=== PATIENT | female | born 1960 | race Caucasian/White ===

== ENCOUNTER 2017-07-22 05:09 | Inpatient (IN) | payer OTHER ==
[~2017-07-22] VITALS: Ht 154.9 cm; Wt 70.3 kg
[~2017-07-22 05:09] MED LIST: FERROUS FUMARA324 MG PO; LISINOPRIL40 MG PO; NORVASC5 MG PO; VITAMIN B COMPL1 TAB PO; VITAMIN D35000 UNIT PO
== END 2017-07-27 13:30 | disposition home or self-care (01) | DRG 392 ==
LOC: ER 05:09 → SEC-K 19:18 → SURH 19:18
PROC: BW21Y0Z Computerized Tomography (CT Scan) of Abdomen and Pelvis using Other Contrast, Unenhanced and Enhanced (ICD-10-PCS; principal; 2017-07-22)
DX: K57.32 Diverticulitis of large intestine without perforation or abscess without bleeding (principal); I10 Essential (primary) hypertension; N92.0 Excessive and frequent menstruation with regular cycle

== ENCOUNTER 2017-07-29 01:19 | Emergency (ER) | payer OTHER ==
[~2017-07-29] VITALS: Ht 154.9 cm; Wt 70.3 kg
[2017-07-29] MEDS ORDERED: KETO10TA2 PO (08:04)
== END 2017-07-29 08:11 | disposition home or self-care (01) ==
LOC: ER 01:19
DX: R51 Headache (principal); I10 Essential (primary) hypertension

== ENCOUNTER 2018-03-03 02:37 | Inpatient (IN) | payer OTHER ==
[~2018-03-03] VITALS: Ht 154.9 cm; Wt 70.8 kg
[~2018-03-03 02:37] MED LIST changes: +KETO10TA2 PO
== END 2018-03-12 10:41 | disposition home or self-care (01) | DRG 336 ==
LOC: ER 02:37 → ICU-2 17:13 → SURH 03-05 15:46
PROVIDERS: Specialist
PROC: BW25Y0Z Computerized Tomography (CT Scan) of Chest, Abdomen and Pelvis using Other Contrast, Unenhanced and Enhanced (ICD-10-PCS; 2018-03-03)
PROC: 02HV33Z Insertion of Infusion Device into Superior Vena Cava, Percutaneous Approach (ICD-10-PCS; 2018-03-04)
PROC: 3E0436Z Introduction of Nutritional Substance into Central Vein, Percutaneous Approach (ICD-10-PCS; 2018-03-04)
PROC: 0WJG0ZZ Inspection of Peritoneal Cavity, Open Approach (ICD-10-PCS; 2018-03-05)
PROC: 0DN80ZZ Release Small Intestine, Open Approach (ICD-10-PCS; principal; 2018-03-05 09:00)
DX: K56.51 Intestinal adhesions [bands], with partial obstruction (principal); J98.11 Atelectasis; I10 Essential (primary) hypertension; E87.6 Hypokalemia

== ENCOUNTER 2019-11-16 10:55 | Inpatient (IN) | payer OTHER ==
[~2019-11-16] VITALS: Ht 154.9 cm; Wt 72.6 kg
[2019-12-23] MEDS ORDERED: HYDRODIURIL12.5 MG PO (10:53)
[2019-12-23] MEDS ORDERED: PREMAR PO (10:54)
[2019-12-30] MEDS ORDERED: NORVASC10 MG PO (13:11)
[2019-12-30] MEDS ORDERED: [UNRECOGNIZED DRUG - OTHER] (13:14)
[2020-01-05] MEDS ORDERED: CARAFATE1 GM/10 ML PO (08:33)
[2020-01-05] MEDS ORDERED: ULTRAM50 MG PO (08:33)
[2020-01-05] MEDS ORDERED: NEURONTIN300 MG PO (08:33)
[2020-01-05] MEDS ORDERED: PEPCID AC20 MG PO (08:33)
[2020-01-05] MEDS ORDERED: TYLENOL ARTHRI650 MG PO (08:33)
[2020-01-05] MEDS ORDERED: MIRALAX17 GM PO (08:33)
== END 2020-01-05 09:42 | disposition home or self-care (01) | DRG 336 ==
LOC: SURH 12-30 08:00 → O/R 12-30 10:00 → SURH 12-30 10:30
PROVIDERS: ADMIT Surgery; ATTEND Surgery
PROC: 0DNW4ZZ Release Peritoneum, Percutaneous Endoscopic Approach (ICD-10-PCS; 2019-12-30)
PROC: 0WJF4ZZ Inspection of Abdominal Wall, Percutaneous Endoscopic Approach (ICD-10-PCS; 2019-12-30)
PROC: 0WUF0JZ Supplement Abdominal Wall with Synthetic Substitute, Open Approach (ICD-10-PCS; principal; 2019-12-30 10:30)
DX: K43.0 Incisional hernia with obstruction, without gangrene (principal); J98.11 Atelectasis; K56.51 Intestinal adhesions [bands], with partial obstruction; K42.0 Umbilical hernia with obstruction, without gangrene; R09.02 Hypoxemia

== ENCOUNTER 2020-08-11 07:21 | Outpatient (CLI) | payer OTHER ==
[~2020-08-11 07:21] MED LIST changes: +CARAFATE1 GM/10 ML PO; +HYDRODIURIL12.5 MG PO; +MIRALAX17 GM PO; +NEURONTIN300 MG PO; +NORVASC10 MG PO; +PEPCID AC20 MG PO; +PREMAR PO; +TYLENOL ARTHRI650 MG PO; +ULTRAM50 MG PO; +[UNRECOGNIZED DRUG - OTHER]
== END 2020-08-11 07:36 | disposition home or self-care (01) ==
LOC: NUCLEAR 07:21
PROVIDERS: ATTEND Internal Medicine Cardiovascular Disease
DX: I25.9 Chronic ischemic heart disease, unspecified (principal); I65.29 Occlusion and stenosis of unspecified carotid artery; I20.9 Angina pectoris, unspecified
CPT/HCPCS: 78452; 93017; A9500; J0153

== ENCOUNTER 2020-08-29 12:51 | Outpatient (CLI) | payer OTHER | END 2020-08-29 13:01 | disposition home or self-care (01) | LOC: NUCLEAR 12:51 | PROVIDERS: ATTEND Internal Medicine Cardiovascular Disease | DX: I87.2 Venous insufficiency (chronic) (peripheral) (principal) ==

== ENCOUNTER 2020-08-29 13:51 | Outpatient (CLI) | payer OTHER | END 2020-08-29 14:17 | disposition home or self-care (01) | LOC: RAD 13:51 | PROVIDERS: ATTEND Internal Medicine Cardiovascular Disease | DX: M79.672 Pain in left foot (principal) ==

== ENCOUNTER 2023-03-03 07:45 | Outpatient (CLI) | payer OTHER | END 2023-03-03 07:46 | disposition home or self-care (01) | LOC: NUCLEAR 07:45 | PROVIDERS: ATTEND Internal Medicine | DX: I25.10 Atherosclerotic heart disease of native coronary artery without angina pectoris (principal) ==